=== PATIENT | male | born 1960 | race Caucasian/White ===

== ENCOUNTER → 2018-10-12 | Day surgery (SDC) | payer BC | LOC: MSO 07:25 | DX: Z12.11 Encounter for screening for malignant neoplasm of colon (principal); I10 Essential (primary) hypertension; I48.91 Unspecified atrial fibrillation; Z79.82 Long term (current) use of aspirin | CPT/HCPCS: J2704; J3010; J7120 ==

== ENCOUNTER 2021-10-22 19:52 | Emergency (ER) | payer BC ==
[~2021-10-22] VITALS: Ht 180.3 cm; Wt 95.5 kg
[2021-10-22] MEDS ORDERED: ATORVASTATIN CA20 MG PO (20:36)
[2021-10-22] MEDS ORDERED: AMLODIPINE BESYL5 MG PO (20:37)
[2021-10-22 20:45] LABS: BASO # 0.03 K/mm3 (0.02-0.10); EOS # 0.09 K/mm3 (0.04-0.40); EOS % 1.1 % (0.0-4.0); HEMATOCRIT 42.3 % (42.0-52.0); HEMOGLOBIN 14.6 g/dL (13.5-18.0); LYMPH# 2.32 K/mm3 (1.50-4.00); MEAN CELL VOLUME 87 fl (78-100); MEAN CORPUSCULAR HEMOGLOBIN 30 pg (27-31); MEAN CORPUSCULAR HGB CONC 35 g/dL (33-37); MEAN PLATELET VOLUME 9.4 fl (7.4-10.4); MONO # 0.87 K/mm3 (0.20-0.80); NEU # 5.08 K/mm3 (1.40-6.50); PLATELET COUNT 224 K/mm3 (130-400); RED BLOOD COUNT 4.86 M/mm3 (4.20-5.60); RED CELL DISTRIBUTION WIDTH 12.5 % (11.5-14.5); WHITE BLOOD COUNT 8.4 K/mm3 (4.8-10.8)
[2021-10-22 20:57] LABS: ALBUMIN 3.9 g/dL (3.4-4.8); POTASSIUM 3.8 mmol/L (3.5-5.1)
[2021-10-22 20:58] LABS: CALCIUM 9.5 mg/dL (8.3-10.5)
[2021-10-22 20:59] LABS: TOTAL PROTEIN 7.2 g/dL (6.2-8.1)
[2021-10-22 21:01] LABS: TOTAL BILIRUBIN 0.5 mg/dL (0.2-1.2)
[2021-10-22 21:12] LABS: D-DIMER 0.44 mg/L FEU (0.15-0.50)
[2021-10-22 21:50] VITALS: BP 168/86
== END 2021-10-22 21:50 | disposition home or self-care (01) ==
LOC: ED 19:52
PROVIDERS: Nurse Practitioner
DX: S90.31XA Contusion of right foot, initial encounter (principal); I87.2 Venous insufficiency (chronic) (peripheral); I10 Essential (primary) hypertension; X58.XXXA Exposure to other specified factors, initial encounter

== ENCOUNTER → 2021-10-23 | Outpatient (CLI) | payer BC ==
[~2021-10-23] MED LIST: AMLODIPINE BESYL5 MG PO; ATORVASTATIN CA20 MG PO
== END ==
LOC: VAS 14:56 → RAD 15:00
DX: M79.89 Other specified soft tissue disorders (principal)